=== PATIENT | female | born 2000 | race Caucasian/White ===

== ENCOUNTER 2019-08-24 18:36 | Emergency (ER) | payer MEDICAID, SELFPAY ==
--- NOTE | ~2019-08-24 | XR_ITS ---
EXAMINATION: XR ankle RT min 3V DATE: 08/24/2019 18:57 INDICATION: Right ankle pain TECHNIQUE: Anteroposterior, lateral, mortise, and additional oblique view of the ankle were obtained. COMPARISON: None. FINDINGS: There is no fracture, dislocation, or subluxation. The bones and joint spaces are normal. T here is mild ankle soft tissue swelling. IMPRESSION: 1. No acute osseous abnormality. Reviewed, dictated and finalized at location A.
[2019-08-24 18:40] VITALS: BP 126/81; PULSE 87; RESP 20; TEMP 36.5; O2SAT 99
--- NOTE | 2019-08-24 19:06 | ED.GENADULT ---
HPI - General Adult General Chief complaint: Extremity Injury, Lower Stated complaint: r ankle injury Source: patient Mode of arrival: ambulatory Limitations: no limitations History of Present Illness HPI narrative: Patient is a 19 y/o female complaining of right ankle pain. She states that she rolled her ankle at work 4 days ago. She rates her pain as 1 or 2 out 10. She is able to walk. She denies pain radiation. She denies other injuries. She did not fall when she rolled her ankle. She states that she was told by her boss to come to ED to evaluated so that they could file a report. Related Data Allergies Allergy/AdvReac Type Severity Reaction Status Date / Time No Known Allergies Allergy Mild Unverified 04/06/08 19:43 Review of Systems Constitutional: Constitutional: Reports as per HPI Musculoskeletal: Musculoskeletal: Reports arthralgias (right ankle pain) Neurologic: Denies headache(s) and Denies focal weakness Exam Const: General: cooperative HENMT: Head: normal to inspection and normocephalic General nose exam: Normal external nose present Eyes: General: appearance normal, both eyes and all related structures Conjunctivae: conjunctivae normal Skin: General skin exam: normal color and no rashes or lesions noted Neuro: General: oriented to person, oriented to place, oriented to time and patient oriented x3 Extrem: Right lower extremity: ankle Details: normal to inspection; no swelling Course Vital Signs Vital signs: Vital Signs Temperature 36.5 C 08/24/19 18:40 Pulse Rate 87 08/24/19 18:40 Respiratory Rate 20 08/24/19 18:40 Blood Pressure 126/81 08/24/19 18:40 Pulse Oximetry 99 08/24/19 18:40 Temperature 36.5 C 08/24/19 18:40 Pulse Rate 87 08/24/19 18:40 Respiratory Rate 20 08/24/19 18:40 Blood Pressure 126/81 08/24/19 18:40 Pulse Oximetry 99 08/24/19 18:40 Medical Decision Making Vital Signs Vital Signs: Vital Signs Temperature 36.5 C 08/24/19 18:40 Pulse Rate 87 08/24/19 18:40 Respiratory Rate 20 08/24/19 18:40 Blood Pressure 126/81 08/24/19 18:40 Pulse Oximetry 99 08/24/19 18:40 Temperature 36.5 C 08/24/19 18:40 Pulse Rate 87 08/24/19 18:40 Respiratory Rate 20 08/24/19 18:40 Blood Pressure 126/81 08/24/19 18:40 Pulse Oximetry 99 08/24/19 18:40 Discharge Plan Discharge Clinical Impression: Right ankle sprain Qualifiers: Encounter type: initial encounter Involved ligament of ankle: unspecified ligament Qualified Code(s): S93.401A - Sprain of unspecified ligament of right ankle, initial encounter Patient Disposition: Home, Self-Care Condition: Stable Instructions: Ankle Sprain (ED) Follow-up/Referrals: PHYSICIAN,CANE FLUME CHUTE OPERATOR [Primary Care Provider] - Discharge Date/Time: 08/24/19 19:25
== END 2019-08-24 19:25 | disposition home or self-care (01) ==
PROVIDERS: Emergency Provider Emergency Medicine
DX: S93.401A Sprain of unspecified ligament of right ankle, initial encounter (principal); X50.9XXA Other and unspecified overexertion or strenuous movements or postures, initial encounter
CPT/HCPCS: 73610; 99283

== ENCOUNTER 2021-01-03 08:03 | Emergency (ER) | payer OTHER, SELFPAY ==
[2021-01-03 08:12] VITALS: BP 123/81; PULSE 85; RESP 14; TEMP 37; O2SAT 99
--- NOTE | 2021-01-03 08:47 | ED.DENTAL ---
HPI - Dental/Oral General Chief complaint: Dental/Oral Stated complaint: Toothache Time Seen by Provider: 01/03/21 08:27 Source: patient Mode of arrival: ambulatory Limitations: no limitations History of Present Illness HPI Narrative: Patient is a 20-year-old female complaining of dental pain, left lower molar, gum swelling started 1 week ago. Patient states that she is needing a root canal as advised by a dentist while back. Patient states that she is 6 weeks . Patient also states that she has been having nausea and vomiting ever since she started this and was placed on Reglan by her WING MAILER MACHINE OPERATOR. Related Data Allergies Allergy/AdvReac Type Severity Reaction Status Date / Time No Known Allergies Allergy Mild Verified 01/03/21 08:16 Review of Systems Review of Systems: All systems reviewed & are unremarkable except as noted in HPI and below PMFSH Comments Past medical history: None Family history: Noncontributory Social history non-smoker no EtOH or drug use Exam Const: General: healthy appearing, no acute distress and alert Nutritional Appearance: well nourished Orientation/consciousness: patient oriented x3 Limitations: no limitations HENMT: Ears: external ears normal Face and sinus: normal facial exam Mouth: Yes lip normal Teeth and gingiva: abnormal tooth and associated gingiva (Dental caries left lower molar, with gingival swelling mild) Throat: posterior oropharynx normal Neck: Neck: normal visual inspection Resp: Effort & Inspection: normal respiratory effort Course Vital Signs Vital signs: Vital Signs Temperature 37.0 C 01/03/21 08:12 Pulse Rate 85 01/03/21 08:12 Respiratory Rate 14 01/03/21 08:12 Blood Pressure 123/81 01/03/21 08:12 Pulse Oximetry 99 01/03/21 08:12 Temperature 37.0 C 01/03/21 08:12 Pulse Rate 85 01/03/21 08:12 Respiratory Rate 14 01/03/21 08:12 Blood Pressure 123/81 01/03/21 08:12 Pulse Oximetry 99 01/03/21 08:12 MDM - Dental/Oral MDM Narrative Medical decision making narrative: Advised to follow-up with a dentist. Patient requesting liquid antibiotics since she has difficulty time swallowing pills. Differential Diagnosis Differential diagnosis: Likely dental caries, toothache, dental abscess and fracture of tooth Discharge Plan Discharge Clinical Impression: Dental caries, Toothache Patient Disposition: Home, Self-Care Condition: Stable Instructions: Toothache (ED) Additional Instructions: Follow-up with a dentist Prescriptions: New amoxicillin 400 mg/5 mL suspension for reconstitution 800 mg PO Q12H 7 Days Qty: 140 RF: 0 Follow-up/Referrals: Sajan,Izzy Perry MD [Primary Care Provider] - Time of Disposition: 08:54
[2021-01-03] MEDS: ONDANSETRON HCL ODT 4 MG TABLET PO (09:01)
[2021-01-03 09:07] VITALS: PULSE 70; RESP 14
== END 2021-01-03 09:07 | disposition home or self-care (01) ==
PROVIDERS: Emergency Provider Emergency Medicine; PCP Internal Medicine
DX: K02.9 Dental caries, unspecified (principal)
CPT/HCPCS: 99283; A9270

== ENCOUNTER 2021-01-16 15:32 | Outpatient (CLI) | payer OTHER, SELFPAY ==
--- NOTE | ~2021-01-16 | US_ITS ---
EXAMINATION: US OB <= 14 weeks fetus DATE: 01/16/2021 16:12 INDICATION: Routine care during first trimester TECHNIQUE: Real-time pelvic transabdominal and transvaginal ultrasound was performed. COMPARISON: None. FINDINGS: The uterus measures 13.0 x 6.4 x 7.0 cm. There is an intrauterine gestational sac. h eart motion is identified measuring 171 beats per minute (bpm) by M-mode Doppler. The crown rum p length measures 3.1 cm , which correlates with an estimated gestational age of 10 weeks and 0 day(s ) (+/-) 9 day(s). The right ovary measures 3.4 x 2.7 x 2.7 cm. The left ovary measures 2.5 x 1.2 x 1.6 cm. There is nor mal vascular flow in the ovaries. There is no free fluid in the pelvis. IMPRESSION: 1. Live intrauterine with an estimated gestational age of 10 weeks and 0 day(s) (+/-) 6 day (s) and an estimated delivery date of 08/14/2021. Reviewed, dictated and finalized at location A. IMPRESSION: 1. Live intrauterine with an estimated gestational age of 10 weeks an d 0 day(s) (+/-) 6 day(s) and an estimated delivery date of 08/14/2021.
== END 2021-01-16 15:33 | disposition home or self-care (01) ==
LOC: ANHIMG 15:38
PROVIDERS: PCP Internal Medicine; Visit Provider Physician Assistant
DX: Z34.91 Encounter for supervision of normal pregnancy, unspecified, first trimester (principal); Z3A.10 10 weeks gestation of pregnancy
CPT/HCPCS: 76801

== ENCOUNTER 2021-03-13 16:22 | Outpatient (CLI) | payer OTHER, SELFPAY ==
--- NOTE | ~2021-03-13 | US_ITS ---
EXAMINATION: US OB follow up DATE: 03/13/2021 17:16 INDICATION: Routine care during second trimester TECHNIQUE: Real-time ultrasound of the pelvis was performed. The interpreting radiologist was not pre sent for the study. COMPARISON: 01/26/2021 FINDINGS: There is a single living fetus in vertex presentation. The placenta is posterior and coveri ng the internal cervical os. cardiac activity and movement are noted. heart rate is 138 beats per minute (bpm). The amniotic fluid index is 12.6 cm which is normal. The following biometric data were obtained: Biparietal diameter (BPD): 4.3 cm; head circumference (HC): 16.3 cm; abdominal circumference (AC): 13 .7 cm; femur length (FL): 3.0 cm. These measurements are concordant. Estimated weight is 280 g +/- 42 g, which correlates with the >97th percentile when 08/14/2021 i s used as estimated date of delivery. As single measurements, these parameters are each equal to the following estimated gestational ages w ith ranges of +/- 2 standard deviations: BPD: 19 weeks 0 days +/- 1 weeks 5 days. HC: 19 weeks 1 days +/- 1 weeks 3 days. AC: 19 weeks 1 days +/- 2 weeks 0 days. FL: 19 weeks 2 days +/- 1 weeks 6 days. estimated gestational age based solely on measurements from this exam is 19 weeks 1 days +/- 1 weeks 2 days. IMPRESSION: 1. Single living fetus in vertex presentation. 2. Estimated weight is 280 g +/- 42 g, which correlates with the >97th percentile when 2 is used as estimated date of delivery. 3. Placenta previa. Reviewed, dictated and finalized at location B. PRINTER INSTALLER IMPRESSION: 1. Single living fetus in vertex presentation. 2. Estimated weight is 280 g +/- 42 g, which correlates with the >97th pe rcentile when 08/14/2021 is used as estimated date of delivery. 3. Placenta previa.
== END 2021-03-13 16:23 | disposition home or self-care (01) ==
LOC: ANHIMG 16:27
PROVIDERS: PCP Internal Medicine; Visit Provider Obstetrics & Gynecology
DX: Z34.02 Encounter for supervision of normal first pregnancy, second trimester (principal); Z3A.19 19 weeks gestation of pregnancy
CPT/HCPCS: 76816

== ENCOUNTER 2021-03-27 16:05 | Outpatient (CLI) | payer OTHER, SELFPAY ==
--- NOTE | ~2021-03-27 | US_ITS ---
EXAMINATION: US OB follow up DATE: 03/27/2021 16:54 INDICATION: Supervision of normal . TECHNIQUE: Real-time transabdominal obstetric ultrasound. FINDINGS: Ultrasound dated 01/16/2021 There is a single living fetus in breech presentation. The placenta is posterior without placenta pr evia. Placental margin is 4 cm to the cervix. cardiac activity and movement is noted with a heart rate of 147 beats per minute. T he amniotic fluid volume is normal. JE measures 11 cm. The following biometric data were obtained: BPD: 50mm corresponds to gestational age 21 weeks 0 days. Head circumference: 185mm corresponds to gestational age 20 weeks 6 days. Abdominal circumference: 148mm corresponds to gestational age 20 weeks 1 days. Femur length: 32mm corresponds to gestational age 20 weeks 1 days. Estimated weight: 338grams +/- 51grams, 57%.] IMPRESSION: 1. Single living intrauterine in breech presentation with an estimated gestational age of 20 weeks 0 days by inititial ultrasound. Appropriate interval growth. 2. Normal placenta. Reviewed, dictated and finalized at location A. LE BUFFER IMPRESSION: 1. Single living intrauterine in breech presentation with an estimat ed gestational age of 20 weeks 0 days by inititial ultrasound. Appropriate int erval growth. 2. Normal placenta.
== END 2021-03-27 16:06 | disposition home or self-care (01) ==
LOC: ANHIMG 16:09
PROVIDERS: PCP Internal Medicine; Visit Provider Obstetrics & Gynecology
DX: Z34.02 Encounter for supervision of normal first pregnancy, second trimester (principal); Z3A.20 20 weeks gestation of pregnancy
CPT/HCPCS: 76816

== ENCOUNTER 2021-05-21 13:16 | Outpatient (CLI) | payer OTHER, SELFPAY ==
--- NOTE | ~2021-05-21 | US_ITS ---
EXAMINATION: US OB /maternal detail DATE: 05/21/2021 14:35 INDICATION: Routine care. TECHNIQUE: Real-time ultrasound of the pelvis was performed. COMPARISON: Ultrasound 03/27/2021, 01/16/2021 FINDINGS: There is a single living fetus in vertex presentation. The placenta is posterior, 5.5 cm from the ce rvix. heart rate is 135 beats per minute (bpm). The amniotic fluid index is 13.6 cm, which is n ormal. The following biometric data were obtained: Biparietal diameter (BPD): 7.5 cm; head circumference (HC): 27.7 cm; abdominal circumference (AC): 25 .0 cm; femur length (FL): 5.2 cm. These measurements are discordant with FL/BPD < 5th percentile. Estimated weight is 1306 g +/- 196 g, which correlates with the 78th percentile when 08/14/21 is used as estimated date of delivery. As single measurements, these parameters are each equal to the following estimated gestational ages: BPD: 29 weeks 6 days. HC: 30 weeks 2 days. AC: 29 weeks 1 days. FL: 27 weeks 6 days. estimated gestational age based solely on measurements from this exam is 29 weeks 2 days +/- 2 weeks 0 days. The cerebral ventricles, cerebellum, cisterna magna, and visualized portions of the spine are normal. The heart is normal. The diaphragm, stomach, kidneys, and bladder are normal. There are two umbilica l arteries to yield a 3-vessel cord. The cord insertion is normal. IMPRESSION: 1. Single living fetus in vertex presentation. 2. Estimated weight is 1306 g +/- 196 g, which correlates with the 78th percentile when 2 is used as estimated date of delivery. 3. Discordant biometrics with low FL/BPD. 4. Normal anatomic survey. Reviewed, dictated and finalized at location A. IOLOGY CONSULTANT IMPRESSION: 1. Single living fetus in vertex presentation. 2. Estimated weight is 1306 g +/- 196 g, which correlates with the 78th percentile when 08/14/21 is used as estimated date of delivery. 3. Discordant biometrics with low FL/BPD. 4. Normal anatomic survey.
== END 2021-05-21 13:17 | disposition home or self-care (01) ==
LOC: ANHIMG 13:24
PROVIDERS: PCP Internal Medicine; Visit Provider Student in an Organized Health Care Education/Training Program
DX: Z36.9 Encounter for antenatal screening, unspecified (principal); Z3A.29 29 weeks gestation of pregnancy
CPT/HCPCS: 76805

== ENCOUNTER 2021-06-22 09:15 | Outpatient (RCR) | payer OTHER, SELFPAY ==
[2021-06-20 09:11] VITALS: BMI 34.4
[2021-06-20 09:20] VITALS: BMI 34.4
== END 2021-07-13 15:01 | disposition home or self-care (01) ==
LOC: ANHDMC 09:15
PROVIDERS: PCP Internal Medicine; Visit Provider Student in an Organized Health Care Education/Training Program
DX: O24.319 Unspecified pre-existing diabetes mellitus in pregnancy, unspecified trimester (principal); Z71.3 Dietary counseling and surveillance; Z71.89 Other specified counseling
CPT/HCPCS: 97802; G0108

== ENCOUNTER 2021-06-30 20:19 | Observation (INO) | payer OTHER, SELFPAY ==
[2021-06-30 20:34] VITALS: BMI 35.9
--- NOTE | 2021-06-30 20:35 | OBADM ---
This patient, Alicia Cardenas Chou, admitted to the OB room OB Post 117 for observation. Patient/family oriented to hospital policies and general routines including ID bracelet, bed and alarms, visiting hours, pain management, procedures, bathroom and other care routines, personal items, smoking policy, room service/diet, and visiting hours. Patient/Family are encouraged to report perceived risks to care and to ask questions if they do not understand what they are told or what they should do.
[2021-06-30 20:40] VITALS: BP 123/78; PULSE 89
[2021-06-30 20:59] VITALS: RESP 18; TEMP 37
--- NOTE | 2021-07-01 07:08 | PM.OBTRLD ---
OB - Triage/Final Diagnosis Visit Information Date of evaluation: 06/30/21 Reason for evaluation: other (leaking) Comments/Additional reasons for admission: I have assessed the risk for this patient, Alicia Chou, and determined that she would benefit from observation care. Evaluation Vital signs: Vital Signs - 24 hr 06/30/21 20:40 06/30/21 20:59 Temperature 98.6 F Pulse Rate 89 Respiratory Rate 18 Blood Pressure 123/78
== END 2021-06-30 21:13 | disposition home or self-care (01) ==
PROVIDERS: Admitting Provider Obstetrics & Gynecology; PCP Internal Medicine; Visit Provider Obstetrics & Gynecology
DX: O42.913 Preterm premature rupture of membranes, unspecified as to length of time between rupture and onset of labor, third trimester (principal); Z3A.33 33 weeks gestation of pregnancy
CPT/HCPCS: 84112; G0378; G0379

== ENCOUNTER 2021-08-07 16:50 | Inpatient (IN) | payer OTHER, SELFPAY ==
--- NOTE | 2021-08-07 16:50 | LDADM ---
This patient, Alicia Chou, was admitted to Labor/Delivery/Recovery 109 on 08/07/21 at 16:50. Plans for labor, pain management and were discussed with patient. Patient/family oriented to hospital policies and general routines including ID bracelet, bed and alarms, visiting hours, pain management, procedures, bathroom and other care routines, personal items, smoking policy, room service/diet and guest tray routines, security routines, and visiting hours. Patient/Family are encouraged to report perceived risks to care and to ask questions if they do not understand what they are told or what they should do. See OBIX for further documentation.
[2021-08-07 17:28] VITALS: BP 124/84; PULSE 104
[2021-08-07 17:45] VITALS: TEMP 36.8
[2021-08-07] MEDS: DINOPROSTONE 10 MG VAG INSERT VAGINAL (17:45)
[2021-08-07 17:48] VITALS: BMI 37.1
[2021-08-07 17:53] LABS: Basophils Percent Auto 0.3 % (0.2-1.2); Eosinophils Absolute Auto 0.2 K/mm3 (0-0.3); Eosinophils Percent Auto 1.5 % (0-4.4); Hematocrit 37.6 % (37.0-47.0); Hemoglobin 12.3 g/dL (12.0-15.0); Immature Granulocyte Absolute 0.07 K/mm3 (0.00-0.031); Immature Granulocyte Percent A 0.7 % (0-0.5); Lymphocytes Absolute Auto 2.08 K/mm3 (0.9-3.2); Lymphocytes Percent Auto 20.9 % (18.3-44.2); Mean Corpuscular HGB Conc 32.7 g/dl (32-36); Mean Corpuscular Hemoglobin 28.7 pg (26-34); Mean Corpuscular Volume 87.6 fl (80-100); Monocytes Absolute Auto 1.2 K/mm3 (0.1-0.6); Monocytes Percent Auto 11.6 % (2.6-8.5); Neutrophils Absolute Auto 6.5 K/mm3 (1.3-6.7); Platelet Count Result 338 k/mm3 (150-375); Red Blood Count 4.29 M/mm3 (4.2-5.4); Red Cell Distribution Width 14.7 % (11.5-14.5)
[2021-08-07 18:00] VITALS: BP 126/70; PULSE 110
[2021-08-07 18:03] LABS: Glucose Point of Care 142 mg/dl (65-105)
[2021-08-07 18:25] LABS: Amphetamine Screen Urine Negative (Negative); Barbiturate Screen Urine Negative (Negative); Benzodiazepines Screen Urine Negative (Negative); Cannabinoid Screen Urine Negative (Negative); Cocaine Screen Urine Negative (Negative); Methadone Screen Urine Negative (Negative); Opiate Screen Urine Negative (Negative); Phencyclidine Screen Urine Negative (Negative)
--- NOTE | 2021-08-07 18:27 | WPDANESEPP ---
Anes - Eval Pre Procedure Procedure: labor epidural Date/Time: 08/07/21 18:27 Surgeon: misti Pre Op Diagnosis: IOL Patient Data Age: 21 Gender: F Height: 1.49 m Weight: 82 kg Last Vital Signs Temp 36.8 C 08/07/21 17:45 Pulse 110 H 08/07/21 18:00 BP 126/70 08/07/21 18:00 Allergies Allergy/AdvReac Type Severity Reaction Status Date / Time No Known Allergies Allergy Mild Verified 07/02/21 08:42 Home Medications Medication Instructions Recorded Confirmed Type PNV cmb#95-ferrous fumarate-FA 1 tablet PO DAILY 07/20/21 07/20/21 History [] Laboratory Tests 08/07/21 08/07/21 08/07/21 17:29 17:29 17:29 WBC 10.0 K/mm3 K/mm3 (4.5-10.0) RBC 4.29 M/mm3 M/mm3 (4.2-5.4) Hgb 12.3 g/dL g/dL (12.0-15.0) Hct 37.6 % % (37.0-47.0) MCV 87.6 fl fl (80-100) MCH 28.7 pg pg (26-34) MCHC 32.7 g/dl g/dl (32-36) RDW 14.7 % H % (11.5-14.5) Plt Count 338 k/mm3 k/mm3 (150-375) MPV 11.0 fl H fl (7.4-10.4) Immature Gran % (Auto) 0.7 % H % (0-0.5) Neut % (Auto) 65.0 % % (45.5-73.1) Lymph % (Auto) 20.9 % % (18.3-44.2) [place] % (Auto) 11.6 % H % (2.6-8.5) Eos % (Auto) 1.5 % % (0-4.4) Baso % (Auto) 0.3 % % (0.2-1.2) Lymph # (Auto) 2.08 K/mm3 K/mm3 (0.9-3.2) [place] # (Auto) 1.2 K/mm3 H K/mm3 (0.1-0.6) Eos # (Auto) 0.2 K/mm3 K/mm3 (0-0.3) Baso # (Auto) 0.0 K/mm3 K/mm3 (0.0-0.1) Abs Immat Gran (auto) 0.07 K/mm3 H K/mm3 (0.00-0.031) Absolute Neuts (auto) 6.5 K/mm3 K/mm3 (1.3-6.7) Absolute Nucleated RBC 0.0 K/mm3 K/mm3 (0.0-0.012) Nucleated RBC % 0.0 % % (0.0-0.2) POC Capillary Glucose Urine Opiates Screen Negative (Negative) Urine Methadone Screen Negative (Negative) Ur Barbiturates Screen Negative (Negative) Ur Phencyclidine Scrn Negative (Negative) Ur Amphetamine Screen Negative (Negative) U Benzodiazepines Scrn Negative (Negative) Urine Cocaine Screen Negative (Negative) U Cannabinoids Screen Negative (Negative) RPR Pending 08/07/21 17:51 WBC RBC Hgb Hct MCV MCH MCHC RDW Plt Count MPV Immature Gran % (Auto) Neut % (Auto) Lymph % (Auto) [place] % (Auto) Eos % (Auto) Baso % (Auto) Lymph # (Auto) [place] # (Auto) Eos # (Auto) Baso # (Auto) Abs Immat Gran (auto) Absolute Neuts (auto) Absolute Nucleated RBC Nucleated RBC % POC Capillary Glucose 142 mg/dl H mg/dl (65-105) Urine Opiates Screen Urine Methadone Screen Ur Barbiturates Screen Ur Phencyclidine Scrn Ur Amphetamine Screen U Benzodiazepines Scrn Urine Cocaine Screen U Cannabinoids Screen RPR Patient hx anesthesia problems: none Family hx anesthesia problems: none Results Review: All pre-operative results and documents have been reviewed as part of the pre-operative evaluation. [facility] Family History Family History (Updated 07/20/21 @ 12:41 by Zora Lopez RN) Grandparent Diabetes mellitus Mother Shock due to anesthesia, sequela Social History Social History (System 07/02/21 @ 08:42 by Ang Alexander) Smoking status: Never smoker Second hand tobacco smoke exposure: Yes Substance use: former Spiritual care concerns: No Exam Day of Procedure 08/07/21 18:27
[2021-08-07 19:00] VITALS: BP 133/90; PULSE 95; RESP 16; TEMP 36.7
[2021-08-07] MEDS: AMPICILLIN 2 GM/NS 100 ML 2 GM/100 ML BAG IVPB (19:28)
[2021-08-07] MEDS: LACTATED RINGERS 1,000 ML 125 ML IV CONT (19:28)
[2021-08-07 21:00] VITALS: RESP 16; TEMP 36.8
[2021-08-07 21:11] LABS: Glucose Point of Care 102 mg/dl (65-105)
[2021-08-07] MEDS: AMPICILLIN 1 GM/NS 50 ML 1 GM/50 ML BAG IVPB (23:51)
[2021-08-07 23:55] VITALS: BP 131/86; PULSE 103; RESP 18; TEMP 36.8
[2021-08-07 23:57] LABS: Glucose Point of Care 99 mg/dl (65-105)
[2021-08-08] VITALS (164 sets, daily range): BP systolic 95–146; BP diastolic 56–106; PULSE 69–119; RESP 14; TEMP 36.6–37.2; O2SAT 75–100
[2021-08-08] MEDS: CALCIUM CARBONATE (TUMS) 500 MG (200 MG ELEMENTAL) PO (04:10)
[2021-08-08] MEDS: AMPICILLIN 1 GM/NS 50 ML 1 GM/50 ML BAG IVPB ×5 (04:10→20:37)
[2021-08-08 04:25] LABS: Glucose Point of Care 69 mg/dl (65-105)
[2021-08-08] MEDS: OXYTOCIN 30 UNITS/NS 500 ML 30 UNITS/500 ML BAG 6 UNITS IV CONT (06:57)
[2021-08-08] MEDS: ONDANSETRON INJ 4 MG/2 ML VIAL IV PUSH (07:39)
[2021-08-08 07:59] LABS: Glucose Point of Care 102 mg/dl (65-105)
[2021-08-08] MEDS: fentaNYL CITRATE INJ (*CRX) 100 MCG/2 ML VIAL 50 MCG IV PUSH ×2 (07:59→13:43)
[2021-08-08] MEDS: FAMOTIDINE 20 MG/2 ML VIAL IV PUSH (08:00)
--- NOTE | 2021-08-08 08:00 | PM.IMHP ---
H&P: HPI History of Present Illness Date/Time: 08/08/21 08:00 Chief Complaint: Intrauterine at term Narrative: 21 yo G1 at 39w0d who presents for IOL for diet controlled gestational diabetes. Her pregnacy is also complicated by anxiety/depression on escitalopram, ADD, THC use, varicella non-immune status. Review of Systems Cardiovascular: Cardiovascular: Denies chest pain, Denies leg edema, Denies palpitations, Denies dyspnea and Denies dyspnea on exertion Respiratory: Respiratory: Denies cough, Denies dyspnea and Denies dyspnea on exertion Gastrointestinal: Gastrointestinal: Denies abdominal pain, Denies constipation, Denies diarrhea, Denies nausea and Denies vomiting Genitourinary: Genitourinary: Denies hematuria, Denies urinary frequency, Denies dysuria, Denies pelvic pain, Denies urinary incontinence and Denies vaginal discharge Neurologic: Reports system reviewed and no additional complaints, except as documented Psychiatric: Psychiatric: Reports no additional psychiatric complaints Endocrine: Endocrine: Denies palpitations [facility] Family History Family History (Updated 07/20/21 @ 12:41 by Zora Lopez RN) Grandparent Diabetes mellitus Mother Shock due to anesthesia, sequela Social History Social History (System 07/02/21 @ 08:42 by Ang Alexander) Smoking status: Never smoker Second hand tobacco smoke exposure: Yes Substance use: former Spiritual care concerns: No Meds Home Medications and Allergies Home Medications Medication Instructions Recorded Confirmed Type PNV cmb#95-ferrous fumarate-FA 1 tablet PO DAILY 07/20/21 07/20/21 History [] Allergies Allergy/AdvReac Type Severity Reaction Status Date / Time No Known Allergies Allergy Mild Verified 07/02/21 08:42 Vital Signs Vital Signs - 24 hr 08/07/21 17:28 08/07/21 17:45 08/07/21 18:00 Temperature 36.8 C Pulse Rate 104 H 110 H Respiratory Rate Blood Pressure 124/84 126/70 08/07/21 19:00 08/07/21 21:00 08/07/21 23:55 Temperature 36.7 C 36.8 C 36.8 C Pulse Rate 95 103 H Respiratory Rate 16 16 18 Blood Pressure 133/90 131/86 08/08/21 04:18 08/08/21 06:57 08/08/21 07:30 Temperature 36.6 C 36.6 C Pulse Rate 119 H 98 87 Respiratory Rate 14 Blood Pressure 132/93 H 124/79 130/82 Exam Const: General: no acute distress Eyes: EOM: EOMs intact bilaterally Neck: Neck: supple Thyroid: thyroid normal Chest: Breast/axilla inspection: normal inspection of the breasts Breast/axilla palpation: normal palpation of the breasts, normal palpation of the axillae and no axillary lymphadenopathy Resp: Effort & Inspection: normal respiratory effort Auscultation: clear to auscultation bilaterally Cardio: Rate: regular rate Rhythm: regular rhythm GI: Inspection: non-distended and other (Gravid) GI Palp: Yes Soft to palpation, No Tenderness to palpation present (GI) and No Guarding due to palpation present (GI) Auscultation: normal bowel sounds : Speculum Exam - Vagina: No vaginal bleeding OB/external & speculum: external exam normal; No vaginal bleeding Skin: General skin exam: normal color and no rashes or lesions noted Neuro: Cognition (Neuro): normal cognition Speech: normal speech Extrem: General: normal to inspection Psych: Mental Status: mental status grossly normal Affect: normal affect H&P: Results Labs Labs: Short CBC 08/07/21 Range/Units 17:29 WBC 10.0 (4.5-10.0) K/mm3 Hgb 12.3 (12.0-15.0) g/dL Hct 37.6 (37.0-47.0) % Plt Count 338 (150-375) k/mm3 Assessment and Plan Assessment and plan (1) Supervision of high risk , unspecified, third trimester: Code(s): O09.93 - Supervision of high risk , unspecified, third trimester Status: Acute Assessment and Plan: 21 yo G1 at 39w0d admit to L&D routine admission orders continuous EFM cervidil IOL GBS +, Pt to receive ampicillin (2) Obesity affectin
[2021-08-08 12:23] LABS: Rapid Plasma Reagin Non-Reactive (NonReactive)
--- NOTE | 2021-08-08 12:23 | PM.OBPNLAB ---
Pain Control Date/time seen: 08/08/21 12:23 Pain control: tolerating well Pelvic Exam Dilation (cm): 4 Effacement (%): 70 station: -3 Amniotic membrane status: Intact Comments: AROM, for clear fluid Contractions Monitor mode: External Contraction pattern: Irregular Status status: Category l Assessment and Plan Pitocin rate (mU/min): 30 Assessment: induction ongoing Plan: continuous present management Comments: AROM for clear fluid, IUPC placed. will continue IOL
[2021-08-08 12:43] LABS: Glucose Point of Care 90 mg/dl (65-105)
[2021-08-08] MEDS: LACTATED RINGERS 1,000 ML 125 ML IV CONT ×3 (13:48→18:20)
[2021-08-08 16:34] LABS: Glucose Point of Care 74 mg/dl (65-105)
[2021-08-08 20:43] LABS: Glucose Point of Care 70 mg/dl (65-105)
[2021-08-09] VITALS (223 sets, daily range): BP systolic 96–131; BP diastolic 53–95; PULSE 72–111; RESP 16; TEMP 36.4–37.9; O2SAT 94–100
[2021-08-09] MEDS: ONDANSETRON INJ 4 MG/2 ML VIAL IV PUSH (00:02)
[2021-08-09] MEDS: AMPICILLIN 1 GM/NS 50 ML 1 GM/50 ML BAG IVPB ×3 (00:38→08:17)
[2021-08-09 00:50] LABS: Glucose Point of Care 67 mg/dl (65-105)
[2021-08-09] MEDS: LACTATED RINGERS 1,000 ML 125 ML IV CONT (04:31)
[2021-08-09 04:56] LABS: Glucose Point of Care 78 mg/dl (65-105)
[2021-08-09 06:24] LABS: Glucose Point of Care 83 mg/dl (65-105)
[2021-08-09 08:45] LABS: Glucose Point of Care 81 mg/dl (65-105)
[2021-08-09 11:00] LABS: Glucose Point of Care 72 mg/dl (65-105)
--- NOTE | 2021-08-09 13:09 | PM.OBPNLAB ---
Pain Control Date/time seen: 08/09/21 13:09 Pain control: epidural Pelvic Exam Dilation (cm): 10 Effacement (%): 100 station: +1 Amniotic membrane status: Ruptured Contractions Monitor mode: Internal Contraction pattern: Irregular Status status: Category l Assessment and Plan Pitocin rate (mU/min): 30 Assessment: induction ongoing Comments: Pt has been complete and pushing for 2 hrs. station has been stuck at +1. head noted to have a large amount of caput. Maternal effort is diminished due to exhaustion. Discussed options with patient. pt offered operative delivery with forceps due to maternal exhaustion. Risks, benefits, alternatives of forceps discussed. Pt consented to a trial of operative delivery. Vazquez catheter was removed. Epidural anesthesia felt to be adequate. head thought to be CHEPE. The left forcep blade was placed along the head. The Right forcep was placed along the head. The forceps were unable to be articulated. This was attempted a total of 3 times. After being unable to the articulate the forceps the procedure was abandoned. A Kiwi vacuum was then discussed. The vacuum was placed approximately 2 cm anterior to the posterior fontanelle. The vacuum was applied and traction was used during the next contraction. This was attempted over 2 contractions. The vacuum popped once per contraction. After two pop-offs, the operative delivery was abandoned. There was no further decent of the head. At this time decision was made to proceed with delivery. Risks, benefits discussed with patient. Dr. Flores was present at bedside. Care of patient was transitioned to Dr. Flores at this time.
--- NOTE | 2021-08-09 13:13 | WPDANESEFPP ---
Anes - Eval Final PreProcedure Day of Procedure 08/09/21 13:13 Patient weight: obese Heart: regular rate and rhythm Lungs: clear to auscultation Neurological: lethargic ASA classification: III Emergent: yes Anesthetic plan: proceed Anesthesia type and monitoring: regional epidural and standard monitoring Other findings: use existing epid for c/s Results Review: All pre-operative results and documents have been reviewed as part of the pre-operative evaluation. Informed Consent: The patient's anesthetic plan and its attendant risks and benefits were discussed with the patient/family/POA. Questions were solicited and answers provided to the satisfaction of the patient/family/POA.
[2021-08-09] MEDS: ceFAZolin 2 GM/D5W 50 ML 2 GM/50 ML BAG IVPB (13:18)
--- NOTE | 2021-08-09 14:18 | W.PM.PROC2 ---
Procedure Note - Detailed Date of Procedure 08/10/21 Pre-op Diagnosis IOL Post-op Diagnosis Other ([facility]) Surgeon Srikanth Flores MD
--- NOTE | 2021-08-09 14:20 | P.PCNOB_ITS ---
OB - Delivery Note Procedure Delivery date: 08/09/21 Procedure: Procedures Operation Date: 08/09/21 13:15 Actual Procedure Side Surgeon p Section Not Applicable Srikanth Flores MD Events: Diabetes Mellitus Intrapartal Events: Arrest of Descent Route of delivery: Prior to decision for section, ACOG/SMFM labor guidelines were considered and discussed with the patient and staff. Decision made to proceed with the section.: Yes Specimen: Yes (cord blood, placenta) Quantitative Blood Loss (ml): 490 Anesthesia type: Epidural Disposition: PACU Complications: None Narrative: The patient was taken to the operating room where she was prepared and draped in the usual sterile fashion in dorsal supine position with a leftward tilt. She received cefazolin preoperatively. Epidural anesthesia was found to be adequate. A Pfannenstiel skin incision was made and carried through to the underlying layer of the fascia. The fascia was incised in the midline and the incision was extended laterally. The fascia was dissected free of the underlying rectus muscles. The rectus muscles were in the midline. The peritoneum was identified, tented up and entered sharply. The peritoneal incision was extended superiorly and inferiorly with good visualization of the bladder. The bladder blade was placed. The vesicouterine peritoneum was identified, tented up and entered sharply. The incision was extended laterally and the bladder flap was developed. The bladder blade was replaced. The uterus was then incised sharply in a transverse fashion along the lower uterine segment. The incision was extended laterally. The infant's head was delivered atraumatically to the sterile field, followed by the body. The nose and mouth were bulb suctioned. After a delay, the cord was clamped and cut. The infant was handed off the field. Cord blood was collected. The placenta was removed m anually and was passed off the field. The uterus was exteriorized and cleared of all clots and debris. The uterine incision was reapproximated using 0 Monocryl in a running, locked fashion. Excellent hemostasis resulted as did excellent reapproximation of the normal anatomy. The uterus was returned the abdomen. The pelvis was irrigated copiously with warmed normal saline. Rigorous hemostasis was assured. The fascial layer was reapproximated using 0 Vicryl in a running fashion. The skin was closed with a running, subcuticular stitch of 4 0 Vicryl. Dermaflex was applied externally. Sponge, lap, needle and instrument counts were correct. The patient was taken to the recovery room in stable condition. The went to the nursery in stable condition. I was present and scrubbed the entire procedure. [place] Baby Date of : 08/09/21 Time of : 13:50 Weeks of gestation at delivery: 39 gender: Male Weight (pounds): 7 Weight (ounces): 11 presentation: vertex position: Left Occiput Posterior Placenta delivery description: Manual Removal and Normal Configuration Cord Vessel Description: 3 Vessels and Delayed Cord Clamping score one minute: 8 score five minutes: 9
[2021-08-09] MEDS: MORPHINE SULFATE INJ (*CRX) 10 MG/ML AMP 3 MG IV PUSH (16:03)
--- NOTE | 2021-08-09 17:05 | OBPPTRN ---
Patient transferred to post room #278 via wheelchair. Support person present. Oriented to unit, room, information board, rooming in, admission packet and security measures. Patient verbalizes understanding. in level II nursery.
[2021-08-09] MEDS: KCL 20 MEQ/D5/0.45% SOD CHL 1,000 ML 125 ML IV CONT (18:41)
[2021-08-10] VITALS: BP 127/69; PULSE 114; RESP 18; TEMP 36.4; O2SAT 98
[2021-08-10] MEDS: IBUPROFEN 600 MG TABLET PO ×3 (03:35→18:38)
[2021-08-10 03:50] VITALS: BP 120/65; PULSE 118; RESP 20; TEMP 37.3; O2SAT 99
[2021-08-10 05:31] LABS: Hematocrit 32.8 % (37.0-47.0); Hemoglobin 10.1 g/dL (12.0-15.0); Mean Corpuscular HGB Conc 30.8 g/dl (32-36); Mean Corpuscular Hemoglobin 29.1 pg (26-34); Mean Corpuscular Volume 94.5 fl (80-100); Mean Platelet Volume 10.5 fl (7.4-10.4); Platelet Count Result 258 k/mm3 (150-375); Red Blood Count 3.47 M/mm3 (4.2-5.4); Red Cell Distribution Width 15.2 % (11.5-14.5); White Blood Count 25.3 K/mm3 (4.5-10.0)
[2021-08-10 06:50] LABS: Band Neutrophils Percent 7 % (0-6); Lymphocytes Absolute Manual 2.27 K/mm3 (1.1-4.5); Monocytes Absolute Manual 1.26 K/mm3 (0.1-0.90); Monocytes Percent Manual 5 % (3-9); Neutrophils Absolute Manual 21.75 K/mm3 (1.7-7.2); Neutrophils Percent Manual 79 % (46-73); Platelet Estimate Adequate (Adequate); Total Cells Counted 100
[2021-08-10 08:00] VITALS: BP 107/79; PULSE 104; RESP 17; TEMP 36.6; O2SAT 98
[2021-08-10] MEDS: MULTIVIT/MIN/PREN/FOL AC/IRON TABLET 1 TAB PO (10:13)
[2021-08-10] MEDS: DOCUSATE SODIUM 100 MG CAPSULE PO (10:13)
[2021-08-10 11:30] VITALS: BP 111/65; PULSE 108; RESP 16; TEMP 36.6; O2SAT 98
--- NOTE | 2021-08-10 13:23 | PM.OBPNVD ---
OB - PN: Subj Subjective Date/time seen: 08/10/21 13:23 Narrative: Pain OK. Tolerating diet. Would like circumcision for son. OB - PN: Obj Data Labs CBC & Chem 7: 08/10/21 03:37 Labs: Laboratory Results - last 24 hr 08/10/21 03:37 WBC 25.3 H RBC 3.47 L Hgb 10.1 L Hct 32.8 L MCV 94.5 D MCH 29.1 MCHC 30.8 L RDW 15.2 H Plt Count 258 MPV 10.5 H Immature Gran % (Auto) Not Reportable Neut % (Auto) Not Reportable Lymph % (Auto) Not Reportable [place] % (Auto) Not Reportable Eos % (Auto) Not Reportable Baso % (Auto) Not Reportable Lymph # (Auto) Not Reportable [place] # (Auto) Not Reportable Eos # (Auto) Not Reportable Baso # (Auto) Not Reportable Abs Immat Gran (auto) Not Reportable Absolute Neuts (auto) Not Reportable Absolute Nucleated RBC Not Reportable Total Counted 100 Neutrophils % (Manual) 79 H Band Neutrophils % 7 H Lymphocytes % (Manual) 9.0 L Monocytes % (Manual) 5 Nucleated RBC % Not Reportable Abs Neuts (Manual) 21.75 H Abs Lymphs (Manual) 2.27 Abs Monocytes (Manual) 1.26 H Platelet Estimate Adequate OB - PN A/P Plan Comments: A: POD#1, doing well. P: Routine care. Reviewed circ. Exam Narrative: AVSS I/O OK ABD soft, nontender, fundus firm. Incision c/d/i. EXT nontender
--- NOTE | 2021-08-10 13:28 | PM.OBDSVD ---
DS: Admitting Diagnosis Discharge Date 08/11/21 Admitting Diagnosis IUP at 39 weeks GDM DS: Discharge Diagnosis Discharge Diagnosis (1) delivery delivered: Code(s): O82 - Encounter for delivery without indication Status: Acute (2) Gestational diabetes: Code(s): O24.419 - Gestational diabetes mellitus in , unspecified control Status: Acute (3) Depression affecting : Code(s): O99.340 - Other mental disorders complicating , unspecified trimester; F32.A - Depression, unspecified Status: Acute (4) Obesity affecting : Code(s): O99.210 - Obesity complicating , unspecified trimester Status: Acute (5) Maternal varicella, non-immune: Code(s): O09.899 - Supervision of other high risk pregnancies, unspecified trimester; Z28.39 - Other underimmunization status Status: Acute (6) Substance abuse affecting in first trimester, antepartum: Code(s): O99.321 - Drug use complicating , first trimester Status: Acute OB - DS: Summary OB Procedures : None OB Procedures Intrapartum: OB Procedures: : None Peripartum Data Procedures: Procedures Operation Date: 08/09/21 13:15 Actual Procedure Side Surgeon p Section Not Applicable Srikanth Flores MD DS: Data Data Completed and Pending Pending studies at discharge: Pending at discharge 08/09/21 13:51 Surgical [PTH] Routine Labs on day of discharge: Labs from last 24 hours 08/10/21 03:37 WBC 25.3 H RBC 3.47 L Hgb 10.1 L Hct 32.8 L MCV 94.5 D MCH 29.1 MCHC 30.8 L RDW 15.2 H Plt Count 258 MPV 10.5 H Immature Gran % (Auto) Not Reportable Neut % (Auto) Not Reportable Lymph % (Auto) Not Reportable [place] % (Auto) Not Reportable Eos % (Auto) Not Reportable Baso % (Auto) Not Reportable Lymph # (Auto) Not Reportable [place] # (Auto) Not Reportable Eos # (Auto) Not Reportable Baso # (Auto) Not Reportable Abs Immat Gran (auto) Not Reportable Absolute Neuts (auto) Not Reportable Absolute Nucleated RBC Not Reportable Total Counted 100 Neutrophils % (Manual) 79 H Band Neutrophils % 7 H Lymphocytes % (Manual) 9.0 L Monocytes % (Manual) 5 Nucleated RBC % Not Reportable Abs Neuts (Manual) 21.75 H Abs Lymphs (Manual) 2.27 Abs Monocytes (Manual) 1.26 H Platelet Estimate Adequate Discharge Plan Discharge Attending physician on discharge: Vincenzo Cohen Consulting providers: Srikanth Flores ; Jose R Nguyen Discharging Clinician: Vincenzo Cohen Patient Disposition: Home, Self-Care Activity: may shower, may drive after 2 weeks and pelvic rest Diet: regular Wound Care Instructions: incision open to air Discharge Instructions: Education: Mom and Baby Guide Given to: Mother Follow-Up: Call your delivering provider's office for an appointment to be seen in: 2 weeks Mom and baby should come to the [facility] for the follow-up appointment. Appointment Date/Time: 08/13/2021 at 10:00 am What to expect at your follow-up visit: Physical Assessment Call [phone] if you are unable to keep your appointment time. BREAST CARE: * Wear a snug supportive bra. * For engorgement discomfort: Breast Feeding: * Apply warm moist washcloths * Express milk as needed to relieve engorgement * Wear loose clothing * For sore nipples: * Identify correct latch-on * Apply warm moist washcloths before and after nursing * Air dry nipples after nursing * May apply Lansinoh cream to nipples ABDOMINAL INCISION: (if applicable) * Allow incision to air dry * Do NOT use lotions for powders on your incision * When showering, allow soap and water to run over the incision, but do not wash incision EPISIOTOMY/PERINEAL CARE: * Until ble
[2021-08-10] MEDS: HYDROcodone/acetaminophen (*CRX) 5-325 MG TABLET 1 TAB PO ×2 (14:06→21:07)
--- NOTE | 2021-08-10 14:57 | WPDANLDPN2 ---
Anes-Prog Note L&D Date/Time: 08/10/21 14:57 Comfortable throughout: labor and section Neuraxial method: epidural Epidural/Spinal procedure site: clean & non-tender Neuro status: Neuro function grossly intact. Cardiovascular status: normal Respiratory status: normal Airway patency: baseline Mental status: baseline Post-Op hydration status: normal Vital Signs: Last Vital Signs Temp 97.8 F 08/10/21 11:30 Pulse 108 H 08/10/21 11:30 Resp 16 08/10/21 11:30 BP 111/65 08/10/21 11:30 Pulse Ox 98 08/10/21 11:30 Pain score (VAS): 0 I/O: Intake & Output 08/09/21 08/10/21 08/10/21 23:59 07:59 15:59 Intake Total 1500 300 Output Total 1350 1350 1000 Balance 150 -1050 -1000 Post-procedural complaints: pruritis mild, no treatment Patient feedback: Patient satisfied with anesthetic care.
--- NOTE | 2021-08-10 14:58 | WPDANLDNPN2 ---
Anes-Prog Note L&D-Neuraxial Date/Time: 08/10/21 14:58 Neuraxial medications: epidural PF morphine Opiod-related complaints: pruritis mild, no treatment Patient feedback: Patient satisfied with post-operative pain management.
--- NOTE | 2021-08-10 15:15 | PC.NURSE ---
1345 - Introductions were made, then consulted with patient to assess needs related to . Mother led the conversation with her experience feeding her infant so far. Encouraged understanding of the benefits of skin to skin (unwrapping infant and placing vertically on her chest), responsive feeding and how to watch for early feeding signs, frequency of feeding on demand about every 8-12 times in 24 hours (every 2-3 hours), milk production, duration of feeding, signs of adequate intake/output and how to record on the feeding sheet. Nipple care reviewed with optimal latch and good positioning. Mother states she has been latching infant and without discomfort. RN encouraged mother to call for an assessment of latching/positioning with the next feeding and mother voiced understanding of that and responsive feedings, stimulating with skin to skin, hand expressed colostrum, touch, talking to to encourage if it has been 2 -3 hours since the start of the last , to call if does not latch or there is discomfort with . Reported to the primary RN who is at the desk with the infant that recently had a circumcision.
[2021-08-10 18:35] VITALS: BP 117/72; PULSE 100; RESP 18; TEMP 36.8
[2021-08-11] MEDS: IBUPROFEN 600 MG TABLET PO ×3 (03:34→15:22)
[2021-08-11] MEDS: HYDROcodone/acetaminophen (*CRX) 5-325 MG TABLET 1 TAB PO ×3 (03:34→15:22)
--- NOTE | 2021-08-11 06:29 | P.PNOB_ITS ---
OB - PN: Subj Subjective Date/time seen: 08/11/21 06:29 Patient comments: no complaints and pain well controlled OB - PN: Obj Data Labs CBC & Chem 7: 08/10/21 03:37 Labs: Laboratory Results - last 24 hr 08/10/21 03:37 WBC 25.3 H RBC 3.47 L Hgb 10.1 L Hct 32.8 L MCV 94.5 D MCH 29.1 MCHC 30.8 L RDW 15.2 H Plt Count 258 MPV 10.5 H Immature Gran % (Auto) Not Reportable Neut % (Auto) Not Reportable Lymph % (Auto) Not Reportable [place] % (Auto) Not Reportable Eos % (Auto) Not Reportable Baso % (Auto) Not Reportable Lymph # (Auto) Not Reportable [place] # (Auto) Not Reportable Eos # (Auto) Not Reportable Baso # (Auto) Not Reportable Abs Immat Gran (auto) Not Reportable Absolute Neuts (auto) Not Reportable Absolute Nucleated RBC Not Reportable Total Counted 100 Neutrophils % (Manual) 79 H Band Neutrophils % 7 H Lymphocytes % (Manual) 9.0 L Monocytes % (Manual) 5 Nucleated RBC % Not Reportable Abs Neuts (Manual) 21.75 H Abs Lymphs (Manual) 2.27 Abs Monocytes (Manual) 1.26 H Platelet Estimate Adequate OB - PN A/P Plan day: 2 Plan: routine care Time Spent With Patient Time: Total time spent is greater than 50% in coordination of care (as documented) at patient's floor/unit and/or counseling patient: Time with patient: less than 15 minutes Review of Systems Review of Systems: All systems reviewed & are unremarkable except as noted in HPI and below Exam Const: General: no acute distress Eyes: General: appearance normal, both eyes and all related structures Neck: Neck: supple and no JVD Thyroid: thyroid normal Resp: Effort & Inspection: normal respiratory effort Auscultation: clear to auscultation bilaterally Cardio: Rate: regular rate Rhythm: regular rhythm GI: Inspection: non-distended GI Palp: Yes Soft to palpation, No Tenderness to palpation present (GI) and No Guarding due to palpation present (GI) Auscultation: normal bowel sounds : General: Yes bladder normal to palpation External Female Exam: normal external appearance Speculum Exam - Vagina: normal vaginal discharge and No vaginal bleeding Speculum Exam - Cervix: nontender Bimanual exam- vagina & uterus: bladder normal to palpation and No Cervical tenderness present OB/external & speculum: No vaginal bleeding Skin: General skin exam: no rashes or lesions noted Extrem: General: normal to inspection and no edema Psych: Mental Status: mental status grossly normal Affect: normal affect
[2021-08-11] MEDS: MULTIVIT/MIN/PREN/FOL AC/IRON TABLET 1 TAB PO (09:10)
[2021-08-11] MEDS: DOCUSATE SODIUM 100 MG CAPSULE PO (09:11)
[2021-08-11] MEDS: SIMETHICONE 80 MG TAB.CHEW PO (09:11)
[2021-08-11 09:12] VITALS: BP 113/66; PULSE 98; RESP 12; TEMP 36; O2SAT 98
--- NOTE | 2021-08-11 18:45 | PC.NURSE ---
[address] James León to see if pt could be D/C'd home? Yes please put in order. She needs to see Dr. Cohen in 2 weeks.
[2021-08-13 10:34] VITALS: BP 127/70; PULSE 101; RESP 16; TEMP 37.2; O2SAT 98
== END 2021-08-11 17:47 | disposition home or self-care (01) | DRG 540 ==
LOC: ANHOB2 08-11 15:08 → ANHLDR 08-14 08:38 → ANHOB2 08-14 08:38
PROVIDERS: Obstetrics & Gynecology; Admitting Provider Student in an Organized Health Care Education/Training Program; PCP Internal Medicine; Visit Provider Obstetrics & Gynecology
PROC: 10D00Z1 Extraction of Products of Conception, Low, Open Approach (ICD-10-PCS; CPT 59514; principal; 2021-08-09 13:15)
DX: O24.420 Gestational diabetes mellitus in childbirth, diet controlled (principal); Z37.0 Single live birth; Z3A.39 39 weeks gestation of pregnancy; O99.824 Streptococcus B carrier state complicating childbirth; O99.344 Other mental disorders complicating childbirth; F41.8 Other specified anxiety disorders; F98.8 Other specified behavioral and emotional disorders with onset usually occurring in childhood and adolescence; O99.324 Drug use complicating childbirth; F12.90 Cannabis use, unspecified, uncomplicated; O75.81 Maternal exhaustion complicating labor and delivery; O99.214 Obesity complicating childbirth; E66.9 Obesity, unspecified; O99.73 Diseases of the skin and subcutaneous tissue complicating the puerperium; L29.9 Pruritus, unspecified; O63.1 Prolonged second stage (of labor)
CPT/HCPCS: 36415; 80307; 82948; 85025; 86592; 86850; 86900; 86901; 88307; A9270; J0131; J0290; J0690; J2175; J2210; J2270; J2274; J2405; J2590; J2795; J3010; J3480; J7120

== ENCOUNTER 2022-12-04 21:51 | Emergency (ER) | payer OTHER, SELFPAY ==
[2022-12-04 21:57] VITALS: BP 131/81; PULSE 88; RESP 16; TEMP 37.2; O2SAT 100
[2022-12-04 23:34] LABS: Strep Group A RT-PCR NOT DETECTED (Negative)
--- NOTE | 2022-12-04 23:39 | ED.GENADULT ---
HPI - General Adult General Chief complaint: Eye Problems Stated complaint: pink eye Time Seen by Provider: 12/04/22 22:59 History of Present Illness HPI narrative: Patient is a 22-year-old female who presents the emergency department with chief complaint of left conjunctivitis left ear pain sore throat and redness of her left eyelid patient reports she had drainage out of her left eye was seen in urgent care and started on Polytrim eyedrops. Patient reports that she has had some discharge out of her eye and reports that her eyelid has become progressively redder patient states she also has a sore throat with this but reports is able to swallow without difficulty Related Data Home Medications Medication Instructions Recorded Confirmed etonogestrel 68 mg subdermal 1 implant subdermal ONCE 08/20/22 implant (Nexplanon) Allergies Allergy/AdvReac Type Severity Reaction Status Date / Time No Known Allergies Allergy Mild Verified 08/20/22 08:35 Review of Systems Review of Systems: A 10 system review of systems was completed on the patient and is negative except for what is stated in the HPI. Nursing and ancillary documentation was reviewed. [facility] Past Medical History Medical History Vaginal discharge Surgical History Surgical History H/O gynecological procedure nexplanon insertion 2021 History of delivery Family History Family History Grandparent Diabetes mellitus Mother Shock due to anesthesia, sequela Social History Social History Smoking status: Never smoker Second hand tobacco smoke exposure: Yes Alcohol intake: current Alcohol use details: rarely Substance use: former Living arrangements: with family Occupation/Education: occupation Gender identity (if verbalized by the patient): Female Sexual Orientation (if Verbalized by the Patient): Straight or Heterosexual Spiritual care concerns: No Exam Narrative: GENERAL: Well-appearing, well-nourished, and in no acute distress. HEAD: Normocephalic, atraumatic. EYES: PERRLA and EOMI. there is conjunctival injection of the left eye, there is slight erythema of the left eyelid left ear shows no erythema ENT: Nares clear, no rhinorrhea or epistaxis. Mucous membranes moist. Erythema of the oropharynx NECK: Supple. CHEST: Clear to auscultation. No respiratory distress. HEART: Regular rate and rhythm. No murmur heard. Normal peripheral pulses. ABDOMEN: Soft, nontender, nondistended, normal active bowel sounds. EXTREMITIES: Normal range of motion. No edema. SKIN: Warm, dry, no rash. NEURO: No focal deficits. Alert and oriented x3. PSYCH: Normal mood and affect. Course Vital Signs Vital signs: Vital Signs Temperature 37.2 C 12/04/22 21:57 Pulse Rate 88 12/04/22 21:57 Respiratory Rate 16 12/04/22 21:57 Blood Pressure 131/81 12/04/22 21:57 Pulse Oximetry 100 12/04/22 21:57 Oxygen Delivery Room Air 12/04/22 21:57 Temperature 37.2 C 12/04/22 21:57 Pulse Rate 88 12/04/22 21:57 Respiratory Rate 16 12/04/22 21:57 Blood Pressure 131/81 12/04/22 21:57 Pulse Oximetry 100 12/04/22 21:57 Oxygen Delivery Room Air 12/04/22 21:57 Medical Decision Making MDM Narrative Medical decision making narrative: Differential diagnosis includes orbital cellulitis, conjunctivitis, acute angle-closure glaucoma Intraocular pressure was less than 10 The patient's antibiotic eyedrops will be changed to ofloxacin The patient will be started on Bactrim for cellulitis Vital Signs Vital Signs: Vital Signs Temperature 37.2 C 12/04/22 21:57 Pulse Rate 88 12/04/22 21:57 Respiratory Rate 16 12/04/22 21:57 Blood Pressure 131/81
== END 2022-12-05 00:07 | disposition home or self-care (01) ==
PROVIDERS: Emergency Provider Emergency Medicine; PCP Internal Medicine
DX: H05.012 Cellulitis of left orbit (principal); H10.9 Unspecified conjunctivitis
CPT/HCPCS: 87651; 99283

== ENCOUNTER 2022-12-06 22:15 | Emergency (ER) | payer OTHER, SELFPAY ==
[2022-12-06 22:16] VITALS: BP 130/98; PULSE 110; RESP 15; TEMP 36.8; O2SAT 100
--- NOTE | 2022-12-06 22:34 | ED.FEMALEGU ---
HPI - Female Genitourinary General Chief complaint: Urogenital-Female <Jie Mills APRN - Last Filed: 12/07/22 01:33> Stated complaint: vaginal bleeding <Jie Mills APRN - Last Filed: 12/07/22 01:33> Time Seen by Provider: 12/06/22 22:21 <Jie Mills APRN - Last Filed: 12/07/22 01:33> Source: patient and other (significant other) <Jie Mills APRN - Last Filed: 12/07/22 01:33> Mode of arrival: ambulatory <Jie Mills APRN - Last Filed: 12/07/22 01:33> Limitations: no limitations <Jie Mills APRN - Last Filed: 12/07/22 01:33> History of Present Illness HPI Narrative: Patient is a pleasant 22-year-old female with a past medical history of obesity, depression, gestational diabetes, who presents to the ED today ambulatory with a steady gait for evaluation of a few days of white vaginal discharge/irritation/pain, and swelling. she states she is on antibiotics for an infection of the left eye. she states she wiped and there was some blood today which she thinks is due to the irritation. denies any concerns of STDs. denies chance of . denies hx of herpes. denies urinary symptoms other than pain when urinating due to the irritation at her urethra she states. denies abdominal pain/pelvic pain, fever, chills, n/v/d. is on the nexplanon. <Jie Mills APRN - Last Filed: 12/07/22 01:33> Related Data Home medications: Home Medications Medication Instructions Recorded Confirmed etonogestrel 68 mg subdermal 1 implant subdermal ONCE 08/20/22 implant (Nexplanon) <Jie Mills APRN - Last Filed: 12/07/22 01:33> Allergies/Adverse reactions: Allergies Allergy/AdvReac Type Severity Reaction Status Date / Time No Known Allergies Allergy Mild Verified 12/06/22 22:20 <Jie Mills APRN - Last Filed: 12/07/22 01:33> Review of Systems Review of Systems: CONSTITUTIONAL: Denies fever, chills, or sweats. EYES: Denies visual changes (currently on antibiotics for conjunctivitis and infection of periorbital region of left eye). ENT: Denies rhinorrhea, congestion, sore throat, or otalgia. CARDIOVASCULAR: Denies chest pain, palpitations, or edema. RESPIRATORY: Denies cough or dyspnea. GASTROINTESTINAL: Denies abdominal pain, nausea, vomiting, or diarrhea. GENITOURINARY: vaginal redness/swelling/pain and itching. +vaginal discharge. pain with urination. SKIN: Denies rash or itching. MUSCULOSKELETAL: Denies back pain, joint pain, or myalgia. NEUROLOGIC: Denies headache, numbness, or weakness. PSYCHIATRIC: Denies anxiety or depression. <Jie Mills APRN - Last Filed: 12/07/22 01:33> All systems reviewed & are unremarkable except as noted in HPI and below <Jie Mills APRN - Last Filed: 12/07/22 01:33> [facility] Past Medical History Medical History: Medical History Vaginal discharge <Jie Mills APRN - Last Filed: 12/07/22 01:33> Surgical History Surgical History: Surgical History H/O gynecological procedure nexplanon insertion 2021 History of delivery <Jie Mills APRN - Last Filed: 12/07/22 01:33> Family History Family History: Family History Grandparent Diabetes mellitus Mother Shock due to anesthesia, sequela <Jie Mills APRN - Last Filed: 12/07/22 01:33> Social History Social History: Social History Smoking status: Never smoker Second hand tobacco smoke exposure: Yes Alcohol intake: current Alcohol use details: rarely Substance use: former Living arrangements: with family Occupation/Education: occupation Gender identity (if verbalized by the patient): Female Sexual Orientation (if Verbalized by the Patient): Straight or Heterosexual Spiritual c
[2022-12-06 23:15] LABS: Appearance Urine Cloudy (Clear); Bacteria Urine 1+ /hpf; Bilirubin Urine Negative (Negative); Blood Urine 1+ (Negative); Color Urine Yellow (Yellow); Glucose Urine UA Negative (Negative); Ketones Urine Negative (Negative); Leukocyte Esterase Ur 3+ LEU/UL (Negative); Nitrate Urine Negative (Negative); Protein Urine Trace mg/dL (Negative); Specific Grav Ur 1.028 (1.001-1.035); Squamous Epithelial Cell Urine Few /hpf (Few); WBC Urine >100 /hpf
[2022-12-06 23:22] LABS: Add Urine Microscopic? YES
[2022-12-07 00:18] VITALS: BP 127/74; PULSE 75; RESP 16; O2SAT 98
== END 2022-12-07 00:20 | disposition home or self-care (01) ==
PROVIDERS: Emergency Medicine; Emergency Provider Nurse Practitioner; PCP Internal Medicine
DX: B37.31 Acute candidiasis of vulva and vagina (principal); N30.01 Acute cystitis with hematuria; E66.9 Obesity, unspecified; Z68.41 Body mass index [BMI] 40.0-44.9, adult; Z77.22 Contact with and (suspected) exposure to environmental tobacco smoke (acute) (chronic)
CPT/HCPCS: 81001; 81025; 87070; 87086; 99283

== ENCOUNTER 2024-11-03 10:31 | Outpatient (CLI) | payer OTHER, SELFPAY ==
--- OUTSIDE RECORDS SUMMARY | 2024-11-03 10:42 | XMS_ITS | Clinical Summary ---
Author Organization [facility] [employer] Address [address] [place] [address] Care Team Providers Care Manager Erp Name Role Phone Izzy Moeller MD Primary Care Provider [phone] Source Comments [facility] [employer],non-owned Affiliates and Associated Physician Practices is amultiple site organization consisting of ambulatory clinics and hospital sitesin [place], [place], [place] and [place]. This disclosure is being madepursuant to the Care Everywhere program and may not contain all information available regarding this patient. Last updated 18.[facility] [employer] Allergies No known active allergies Medications * Be aware that medications may not be up to date on this document. Alwaysverify current medications with the patient. 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 Gender Identity Not on file Sexual Orientation Not on file Last Filed Vital Signs Vital Sign Reading Time Taken Comments Blood Pressure - - Pulse - - Temperature - - Respiratory Rate - - Oxygen Saturation - - Inhaled Oxygen Concentration - - Weight 73.5 kg (162 lb) 04/01/2016 8: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 DISPATCHER Height 147.3 cm (4' 10) 04/01/2016 8: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 DISPATCHER Body Mass Index 33.86 04/01/2016 8: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 DISPATCHER Plan of Treatment Health Maintenance Due Date Last Done Comments HIV SCREENING 2013 HPV VACCINE (1 - 3-dose series) 2013 HEPATITIS C SCREENING 05/28/2016 DTAP/TDAP/TD VACCINES (1 - Tdap) 2017 HEPATITIS B VACCINE (1 of 3 - 19+ 3-dose series) 2017 COVID-19 VACCINE (1 - 2023-2 5 season) 2024 DEPRESSION SCREENING 05/05/2024 INFLUENZA VACCINE (Season Ended) 2025 ZOSTER VACCINE (1 of 2) 2048 HIB VACCINE Aged Out No longer eligi ble based on patient's age to complete this topic MENINGOCOCCAL (Group B) VACC INE SHARED DECISION-MAKING Aged Out No longer eligibl e based on patient's age to complete this topic MENINGOCOCCAL GROUPS A/C/Y/W VACCINE Aged Out No longer eligible b ased on patient's age to complete this topic PNEUMOCOCCAL VACCINE Aged Out No long er eligible based on patient's age to complete this topic Insurance [id number] [place] [address] [facility] Care Teams Manager Erp Relationship Specialty Start Date End Date Izzy Moeller MD [address] [place] [id number] PCP - General 08/14/21
[2024-11-03 11:43] LABS: Beta HCG Quantitative < 2.39 mIU/ML
[2024-11-03 12:00] LABS: Syphilis IgG/IgM Antibody Non-Reactive (Nonreactive)
[2024-11-03 12:04] LABS: Hepatitis B Surface Antigen Negative (Negative)
[2024-11-03 12:06] LABS: HIV 1/2 Ab P24 Ag Result Negative (Negative)
[2024-11-03 12:12] LABS: HAV RESULT Negative (Negative); Hepatitis B Core IgM Result Negative (Negative)
== END 2024-11-03 10:32 | disposition home or self-care (01) ==
LOC: ANHLAB 10:33
PROVIDERS: PCP Internal Medicine; Visit Provider Student in an Organized Health Care Education/Training Program
DX: Z20.2 Contact with and (suspected) exposure to infections with a predominantly sexual mode of transmission (principal)
CPT/HCPCS: 36415; 80074; 84702; 86593; 86695; 86696; 86703; G0432